=== PATIENT | female | born 1965 | race Caucasian/White ===

== ENCOUNTER 2019-04-25 07:48 | Day surgery (SDC) | payer OTHER ==
[~2019-04-25] VITALS: Ht 165.1 cm; Wt 92.5 kg
[2019-04-25 08:21] VITALS: BP 125/68
[2019-04-25 13:14] VITALS: BP 122/78
== END 2019-04-25 13:30 | disposition home or self-care (01) ==
LOC: GI 07:48 → OR 10:00 → GI 13:30
DX: K59.02 Outlet dysfunction constipation (principal); K57.30 Diverticulosis of large intestine without perforation or abscess without bleeding; K64.8 Other hemorrhoids; J45.909 Unspecified asthma, uncomplicated; M19.90 Unspecified osteoarthritis, unspecified site; K21.9 Gastro-esophageal reflux disease without esophagitis; Z86.010 Personal history of colon polyps; Z79.899 Other long term (current) drug therapy; Z98.890 Other specified postprocedural states
CPT/HCPCS: 45378; J1200; J1610; J2250; J2310; J3010; J3490